=== PATIENT | female | born 1950 | race Caucasian/White ===

== ENCOUNTER → 2017-12-26 | Outpatient (CLI) | payer MEDICARE ==
[2017-12-26 10:36] LABS: LDL CHOLESTEROL 90 mg/dl
== END ==
LOC: LAB 09:29
PROVIDERS: ATTEND Family Medicine
DX: E11.65 Type 2 diabetes mellitus with hyperglycemia (principal); E78.5 Hyperlipidemia, unspecified; E03.9 Hypothyroidism, unspecified
CPT/HCPCS: 36415; 82040; 82043; 82247; 82310; 82374; 82435; 82465; 82565; 82947; 83036; 83718; 84075; 84132; 84155; 84295; 84443; 84450; 84460; 84478; 84520

== ENCOUNTER → 2018-01-04 | Outpatient (CLI) | payer MEDICARE ==
--- NOTE | 2018-01-04 11:29 | EKG ---
FACILITY: [facility] PATIENT NAME: WILIAN GREENBERG : [id number] MR: [id number] V: [id number] EXAM DATE: ORDERING PHYSICIAN: MELISSA COLEMAN TECHNOLOGIST: ELIER Test Reason : TACHYCARDIA Blood Pressure : / mmHG Vent. Rate : 072 BPM Atrial Rate : 072 BPM P-R Int : 158 ms QRS Dur : 066 ms QT Int : 394 ms P-R-T Axes : 034 009 015 degrees QTc Int : 431 ms Sinus rhythm Borderline left axis deviation Artifact in several precordial leads, but there does not appear to be any acute findings Repeat if needed No previous ECGs available Confirmed by SABRINA WOODS ([id number]) on 01/04/2018 12:19:21 PM Referred By: [place] Confirmed By:SABRINA WOODS
--- NOTE | 2018-01-06 16:37 | RT HOLTER TEST ---
FACILITY: [facility] [place] PATIENT NAME: WILIAN GREENBERG : [id number] MR: [id number] V: [id number] EXAM DATE: ORDERING PHYSICIAN: MELISSA COLEMAN TECHNOLOGIST: Joey Hook-up date: 2018-01-04 11:19:00 Duration: 47:59:00 Test Indications: TACYCARDIA Medications: Metformin Levothyroxine Simvastatin Fluoxetine Perimidone Melatonin [id number] QRS complexes 13 Ventricular ectopics which represent <1 % of total QRS comp. 35 Supraventricular ectopics which represent <1 % of total QRS comp. * Paced QRS complexes which represent % of total QRS comp. VENTRICULAR ECTOPY 13 Isolated 0 Bigeminal Cycles 0 Couplets 0 Runs 0 Beats in Runs * Beats LONGEST at * BPM at :: -- * Beats FASTEST at * BPM at :: -- SUPRAVENTRICULAR ECTOPY 29 Isolated 3 Couplets 0 Runs 0 Beats in Runs * Beats LONGEST at * BPM at :: -- * Beats FASTEST at * BPM at :: -- HEART RATES 54 MIN at 08:24:53 2018-01-06 84 AVG 143 MAX at 17:03:44 2018-01-04 LONGEST RR 1.312 secs at 03:08:48 2018-01-05 S-T LEVELS Channel 1 -12.800 mm MIN at 11:19:00 2018-01-04.800 mm MAX at 11:19:00 2018-01-04 Channel 2 -12.800 mm MIN at 11:19:00 2018-01-04 -12.800 mm MAX at 11:19:00 2018-01-04 Channel 3 -12.800 mm MIN at 11:19:00 2018-01-04.800 mm MAX at 11:19:00 2018-01-04 Sinus rhythm Premature ventricular complexes Premature supraventricular complexes Confirmed by FRANCISCO WILEY ([id number]) on 01/06/2018 4:36:55 PM Referred By: Overread By: FRANCISCO WILEY
== END ==
LOC: RESP 01-03 15:00
PROVIDERS: ATTEND Family Medicine
DX: R00.0 Tachycardia, unspecified (principal)
CPT/HCPCS: 93005; 93225

== ENCOUNTER → 2018-03-30 | Outpatient (CLI) | payer MEDICARE ==
--- NOTE | 2018-04-02 16:59 | RADIOLOGY IMAGING REPORT ---
FACILITY: [facility] PATIENT NAME: WILIAN GREENBERG : [id number] MR: [id number] V: [id number] EXAM DATE: ORDERING PHYSICIAN: MELISSA COLEMAN TECHNOLOGIST: Sophia Cash PROCEDURE:BILATERAL DIGITAL SCREENING MAMMOGRAM WITH CAD ASSISTED INTERPRETATION & 3D TOMOSYNTHESIS COMPARISON:Prior mammograms 03/22/17 back to 07/26/13. INDICATIONS:SCREENING FINDINGS: The breast parenchyma consists of scattered fibroglandular tissue. There are multiple small sub centimeter nodules scattered through both breasts which are stable or smaller than the previous exams. Scattered benign appearing microcalcifications in the Left breast are unchanged. There are no developing masses identified. DIAGNOSTIC CATEGORY 2--BENIGN FINDING. RECOMMENDATIONS: ROUTINE MAMMOGRAM AND CLINICAL EVALUATION. IMPRESSION: BIRADS 2: Benign finding. Routine annual mammographic screening. Dictated by: Guevara Ng M.D. on 04/02/2018 at 10:04 Transcribed by: DANIELLE on 04/02/2018 at 10:17 Approved by: Guevara Ng M.D. on 04/02/2018 at 16:58 [facility]
== END ==
LOC: MAMO 02:25
PROVIDERS: ATTEND Family Medicine
DX: Z12.31 Encounter for screening mammogram for malignant neoplasm of breast (principal)
CPT/HCPCS: 77063; 77067

== ENCOUNTER → 2018-06-18 | Outpatient (CLI) | payer MEDICARE ==
[2018-06-18 10:15] LABS: LDL CHOLESTEROL 94 mg/dl
== END ==
LOC: LAB 09:27
PROVIDERS: ATTEND Family Medicine
DX: E11.65 Type 2 diabetes mellitus with hyperglycemia (principal); E78.5 Hyperlipidemia, unspecified; E03.9 Hypothyroidism, unspecified
CPT/HCPCS: 36415; 82040; 82043; 82247; 82310; 82374; 82435; 82465; 82565; 82947; 83036; 83718; 84075; 84132; 84155; 84295; 84443; 84450; 84460; 84478; 84520

== ENCOUNTER → 2018-10-29 | Outpatient (CLI) | payer MEDICARE ==
[~2018-10-29] MED LIST: FLUO40CA76 PO; LEVO50TA86 PO; METF-450 PO; MIRT45TA4 PO; PRIM50TA FT; SIMV-49 PO
[2018-10-29 09:01] LABS: PLATELET COUNT, AUTOMATED 277 K/uL (150-450)
--- NOTE | 2018-10-29 12:09 | EKG ---
[place] [facility] [place]IENT NAME: WILIAN GREENBERG : [id number] MR: [id number] V: [id number] EXAM DATE: ORDERING PHYSICIAN: UJAN COMER TECHNOLOGIST: DELMI Avila Reason : PRE- COLONOSCOPY Blood Pressure : / mmHG Vent. Rate : 071 BPM Atrial Rate : 071 BPM P-R Int : 148 ms QRS Dur : 064 ms QT Int : 408 ms P-R-T Axes : 026 031 025 degrees QTc Int : 443 ms Normal sinus rhythm Normal ECG When compared with ECG of 04-JAN-2018 10:58, Relatively unchanged Confirmed by DEANNE COYNE ([id number]) on 10/29/2018 8:36:36 PM Referred By: SOULEYMANE Confirmed By:DEANNE COYNE
== END ==
LOC: RESP 08:48
PROVIDERS: ATTEND Surgery
DX: G47.30 Sleep apnea, unspecified (principal); E11.9 Type 2 diabetes mellitus without complications
CPT/HCPCS: 36415; 82310; 82374; 82435; 82565; 82947; 83036; 84132; 84295; 84520; 85025; 93005

== ENCOUNTER 2018-12-07 00:07 | Day surgery (SDC) | payer MEDICARE ==
[~2018-12-07] VITALS: Ht 149.9 cm; Wt 64.9 kg
[~2018-12-07 00:07] MED LIST changes: -PRIM50TA FT; +PRIM50TA PO; +SIMV10TA96 PO
[2018-12-07] MEDS ORDERED: PROPOFOL EMUL(*) 10MG/ML 20 ML 40 ML ONE (07:14)
[2018-12-07 07:58] VITALS: BP 110/60
[2018-12-07 10:08] VITALS: BP 90/77
--- NOTE | 2018-12-07 10:14 | Short(Outpt) Discharge Summary ---
Discharge Summary Reason for Hosp/Final Diag: (1) Encounter for screening colonoscopy Hospital Course & Plan: pt presented for screening colonoscopy. she tolerated the procedure well. path pending. she will be discharged home when criteria met. Discharge Instructions Home Meds Reported Medications Simvastatin (ZOCOR) 10 Mg Tablet, 0.5 TAB PO HS, TAB 11/23/18 Metformin Hcl (METFORMIN HCL) 500 Mg Tablet, 1 TAB PO HS, TAB 11/23/18 Metformin Hcl (METFORMIN HCL) 500 Mg Tablet, 0.5 TAB PO NOON, TAB 11/23/18 Primidone (PRIMIDONE) 50 Mg Tab, 50 MG PO NOON, TAB 10/24/18 Fluoxetine Hcl (PROZAC) 40 Mg Capsule, 40 MG PO HS, CAPSULE 10/24/18 Mirtazapine (MIRTAZAPINE) 45 Mg Tab.rapdis, 45 MG PO HS 10/24/18 Levothyroxine Sodium (LEVOTHYROXINE SODIUM) 50 Mcg Tablet, 50 MCG PO HS, TAB 10/24/18 Diet: Regular Activity: As Tolerated Special Instructions: we will call you in 10 days with biopsy results. JUAN COMER Dec 07, 2018 10:14
[2018-12-07 10:23] VITALS: BP 106/67
[2018-12-07 10:43] VITALS: BP_SYST 117; BP_SYST 122; BP_SYST 125; BP_DIAS 60; BP_DIAS 61; BP_DIAS 66
[2018-12-07] MEDS ORDERED: LIDOCAINE/SOD BICARB 8.4% SYR ID ONE (10:50)
[2018-12-07] MEDS ORDERED: NORMOSOL R SOLN(*) 1000 ML BAG 1,000 ML IV PRN (10:50)
== END 2018-12-07 11:00 | disposition home or self-care (01) ==
LOC: OR 00:07
PROVIDERS: ATTEND Surgery
DX: Z12.11 Encounter for screening for malignant neoplasm of colon (principal); D12.0 Benign neoplasm of cecum; E11.9 Type 2 diabetes mellitus without complications; K57.30 Diverticulosis of large intestine without perforation or abscess without bleeding
CPT/HCPCS: 00811; 36416; 45380; 82948; 88305; J2704

== ENCOUNTER → 2018-12-18 | Outpatient (CLI) | payer MEDICARE ==
[2018-12-18 10:28] LABS: LDL CHOLESTEROL 91 mg/dl
== END ==
LOC: LAB 09:29
PROVIDERS: ATTEND Family Medicine
DX: E11.65 Type 2 diabetes mellitus with hyperglycemia (principal); E78.5 Hyperlipidemia, unspecified; E03.9 Hypothyroidism, unspecified
CPT/HCPCS: 36415; 82040; 82043; 82247; 82310; 82374; 82435; 82465; 82565; 82947; 83036; 83718; 84075; 84132; 84155; 84295; 84443; 84450; 84460; 84478; 84520